=== PATIENT | female | born 1975 | race African-American/Black ===

== ENCOUNTER 2020-01-15 03:13 | Emergency (ER) | payer MEDICAID ==
[2005-11-19 21:45] VITALS: BP 129/83
[~2020-01-15] VITALS: Ht 182.9 cm; Wt 181.0 kg
[2020-01-15 03:13] VITALS: TEMP 96.9
[~2020-01-15 03:13] MED LIST: 00186-0370-20 IH; ABILIFY 10MG TA10 MG PO; ABILIFY 15MG TA15 MG PO; ABILIFY20 MG PO; ABILIFY5 MG PO; ACULAR OPHTHALMI5 ML OP; ADVAIR 250/28 DISKUS IH; ADVAIR 500/28 DISKUS IH; ADVAIR IH; ALBUTEROL S0.4 MG/ML; ALBUTEROL0.09 MG/A1 IH; AMBIEN5 MG PO; ANTIVERT 25MG25 MG PO; ASPIRIN 32325 MG/TAB PO; ATIVAN 1MG T1 MG/TAB PO; AURALGAN EAR DR15 ML OT; Antibiotic; BENADRYL; BENZTROPINE MESY1 MG PO; BENZTROPINE1 MG PO; BLOOD PRESSURE; BUDEPRION XL300 MG PO; BUPROPION HCL150 MG PO; BUSPIRONE; BUSPIRONE10 MG PO; CARDIZEM CD120 MG PO; CATAPRES 0.1MG0.1 MG PO; CATAPRES-T0.1 MG/24 TD; CEPHALEXIN500 M1 PO; CLONIDINE0.1 MG PO; COZAAR 50MG50 MG/TAB PO; CPAP; CYMBALTA 30MG30 MG PO; CYMBALTA 60MG60 MG PO; DEPAKOTE DR500 MG PO; DESYREL; DETROL LA4 PO; DITROPAN 5MG TAB5 MG PO; DOCUSATE CALCI100 MG PO; DOXYCYCLINE 10100 MG PO; ESKALITH300 MG PO; FIORICET 325 MG1 TAB; FLECTOR1.3% TP; FLEXERIL 1010 MG/TAB PO; FLOVENT 110MCG7.9 GM IH; FLUOXETINE; GEODON80 MG PO; GLUCOPHAGE; HCTZ; HCTZ 25MG25 MG PO; HCTZ12.5TAB PO; IBUPROFEN 200200 MG PO; IMIPRAMINE HCL50 MG PO; K-DUR 2020 MEQ PO; LASIX 40MG TABL40 MG PO; LATUDA80 MG PO; LEVAQUIN 250MG250 MG PO; LEVOTHROID0.125 MG PO; LEVOTHYROXIN0.075 MG PO; LEXAPRO; LITHIUM 30300 MG/CAP PO; LITHIUM8 MEQ/5 ML PO; LOPURIN300 MG PO; LORTAB 2.5/5001 TAB; LORTAB 5/500 501 TAB PO; LORTAB 7.5/5001 TAB PO; LUNESTA3 MG PO; MACROBID 1100 MG/CAP PO; METFORMIN500 MG PO; MIDRIN 325 MG-11 CAP PO; MIRTAZAPINE15 MG PO; MOTRIN IB200 MG PO; MS CONTIN15 MG PO; NAPROXEN EC500 MG PO; NAVANE10 MG PO; NORCO 325 MG-51 TAB PO; NORCO 325 MG-7.1 TAB PO; PEPCID 20MG TAB20 MG PO; PERCOCET 5/321 UDTAB PO; PHENERGAN 25 TA25 MG PO; PHENERGAN W/CO120 ML PO; PHENERGAN25 M1 PO; POTASSIUM CH2 MEQ/ML PO; PREDNISOLONE ACETATE; PREDNISONE20 MG PO; PREVACID 15MG15 MG PO; PREVACID 30MG30 M1 PO; PRILOSEC 20MG20 MG PO; PROAIR HFA0.09 MG/AC IH; PROMETHAZINE12.5 M5 PO; PROTONIX 40MG T40 MG PO; PROVENTIL0.09 MG/A1 IH; PROZAC40 MG PO; PSYCH MEDS; ROZEREM8 MG PO; SEROQUEL100 MG PO; SEROQUEL300 MG PO; SEROQUEL400 MG PO; SEROQUEL50 MG PO; SINGULAIR 110 MG/TAB PO; SINGULAIR10 MG PO; SYMBICORT1 AE2 IH; SYMBICORT1 AER IH; SYNTHROID0.137 MG PO; TOPAMAX 100MG100 M1 PO; TOPAMAX 100MG100 MG PO; TOPAMAX100 MG PO; TOPIRAMATE PO; TOPROL XL 50MG50 MG PO; TOVIAZ8 MG PO; TRAZADONE HYDR100 MG PO; TRAZODO50 MG PO; TRICOR145 MG PO; TRILEPTAL 300M300 MG PO; TYLENOL W/COD1 UDTAB PO; UNABLE; VALIUM5 MG PO; VENTOLIN0.09 MG IH; VESICARE10 MG PO; VICODIN 5/5001 UDTAB PO; VIGAMOX 0.5% 3 M3 ML OP; WELLBUTRIN PO; ZANTAC 150150 MG PO; ZIPRASIDONE; ZITHROMAX 250M250 MG PO; ZYLOPRIM 300MG300 MG PO; [UNRECOGNIZED DRUG - OTHER]; [UNRECOGNIZED DRUG - REMARK]; [UNRECOGNIZED DRUG - REMARK]; eye drops
[2020-01-15] MEDS ORDERED: WELLBUTRIN 100100 MG PO (03:54)
[2020-01-15] MEDS ORDERED: FLEXERIL 1010 MG/TAB PO (03:54)
[2020-01-15] MEDS ORDERED: ATARAX 25MG25 MG/TAB PO (03:55)
[2020-01-15] MEDS ORDERED: LATUDA80 MG PO (03:56)
[2020-01-15] MEDS ORDERED: COZAAR 50MG50 MG/TAB PO (03:56)
[2020-01-15] MEDS ORDERED: ATIVAN 1MG T1 MG/TAB PO (03:56)
[2020-01-15] MEDS ORDERED: IMODIUM 2MG CAPS2 MG PO (03:56)
[2020-01-15] MEDS ORDERED: K-DUR20 MEQ PO (03:58)
[2020-01-15] MEDS ORDERED: ANTIVERT 25MG25 MG PO (03:58)
[2020-01-15] MEDS ORDERED: ZYPREXA 5MG5 MG PO (03:59)
[2020-01-15] MEDS ORDERED: SEROQUEL 200MG200 MG PO (04:05)
[2020-01-15] MEDS ORDERED: TRILEPTAL 300M300 MG PO (04:05)
[2020-01-15] MEDS ORDERED: TOPROL XL 50MG50 MG PO (04:06)
[2020-01-15 05:41] VITALS: BP 111/58; PULSE 78
[2020-01-16] MEDS ORDERED: ALEVE 220MG220 MG PO (02:11)
[2020-01-16] MEDS ORDERED: TENORMIN 2525 MG/TAB PO (02:13)
[2020-01-16] MEDS ORDERED: LOTENSIN5 MG PO (02:14)
[2020-01-16] MEDS ORDERED: LIPITOR20 MG PO (02:14)
[2020-01-16] MEDS ORDERED: COLACE 100100 MG/CAP PO (02:15)
[2020-01-16] MEDS ORDERED: B-121000 MCG PO (02:17)
[2020-01-16] MEDS ORDERED: FERROUSAL325 MG PO (02:18)
[2020-01-16] MEDS ORDERED: HALDOL 2MG T2 MG/TAB PO (02:19)
[2020-01-16] MEDS ORDERED: FISH OIL 1000MG1 CAP PO (02:19)
[2020-01-16] MEDS ORDERED: IMDUR 30MG30 MG/TAB PO (02:20)
[2020-01-16] MEDS ORDERED: ATARAX 25MG25 MG/TAB PO (02:20)
[2020-01-16] MEDS ORDERED: CLARITIN LIQUI-10 MG PO (02:24)
[2020-01-16] MEDS ORDERED: FORTAMET500 M1 PO (02:25)
[2020-01-16] MEDS ORDERED: MINIPRESS2 MG PO (02:25)
[2020-01-16] MEDS ORDERED: PRILOSEC 20MG20 MG PO (02:26)
[2020-01-16] MEDS ORDERED: K-DUR 10 MEQ T10 MEQ PO (02:27)
[2020-01-16] MEDS ORDERED: SENNA-LAX8.6 MG PO (02:28)
[2020-01-16] MEDS ORDERED: PRISTIQ100 MG PO (02:28)
[2020-01-16] MEDS ORDERED: TYLENOL 500MG500 MG PO (02:34)
[2020-01-16] MEDS ORDERED: VICTOZA6 MG/ML SQ (02:34)
[2020-01-16] MEDS ORDERED: GENTLE LAXATIVE10 MG RC (02:35)
[2020-01-16] MEDS ORDERED: DESYREL DIVIDO300 MG PO (02:37)
== END 2020-01-15 05:41 | disposition home or self-care (01) ==
LOC: COL.ER 03:13
DX: G47.33 Obstructive sleep apnea (adult) (pediatric) (principal); J44.9 Chronic obstructive pulmonary disease, unspecified; I10 Essential (primary) hypertension; E78.5 Hyperlipidemia, unspecified; F20.9 Schizophrenia, unspecified; F31.9 Bipolar disorder, unspecified; Z99.89 Dependence on other enabling machines and devices

== ENCOUNTER 2020-01-15 21:09 | Emergency (ER) | payer MEDICAID ==
[2005-11-19 21:45] VITALS: BP 129/83
[~2020-01-15] VITALS: Ht 182.9 cm; Wt 181.0 kg
[~2020-01-15 21:09] MED LIST changes: +ATARAX 25MG25 MG/TAB PO; +IMODIUM 2MG CAPS2 MG PO; +K-DUR20 MEQ PO; +SEROQUEL 200MG200 MG PO; +WELLBUTRIN 100100 MG PO; +ZYPREXA 5MG5 MG PO
[2020-01-15 21:57] LABS: BASO % 0.4 % (0.0-2.0); EOS # 0.3 (0.0-0.7); EOS % 3.2 % (0-4.0); GRAN % 50.8 % (42.2-75.2); HEMATOCRIT 42.4 % (37.0-47.0); HEMOGLOBIN 13.4 g/dl (12.5-16.0); LYMPH # 3.8 (1.2-3.4); MEAN CELL VOLUME 94 fl (80.0-100.0); MEAN CORPUSCULAR HEMOGLOBIN 30 pg (27.0-31.0); MEAN CORPUSCULAR HGB CONC 32 g/dl (33.0-37.0); MEAN PLATELET VOLUME 9.7 fl (7.4-10.4); MONO # 0.7 (0.1-0.6); MONO % 7.2 % (1.7-9.3); PLATELET COUNT 267 K/mm3 (130-400); RED BLOOD COUNT 4.51 M/mm3 (4.10-5.30); REDCELL DISTRIBUTION WIDTH-CV 13.1 % (11.5-14.5)
[2020-01-15 22:06] LABS: COLLECTION METHOD CLEAN CATCH
[2020-01-15 22:07] LABS: ALANINE AMINOTRANSFERASE 16 U/L (4-34); ALBUMIN 4.1 gm/dL (3.5-5.0); ALKALINE PHOSPHATASE 97 U/L (50-136); ANION GAP 6 mmol/L (7-16); AST,SGOT 25 U/L (15-37); BILIRUBIN,TOTAL 0.3 mg/dL (0.0-1.0); BLOOD UREA NITROGEN 12 mg/dL (7-17); CALCIUM 9.6 mg/dL (8.4-10.2); CARBON DIOXIDE 26 mmol/L (22-30); CHLORIDE 106 mmol/L (98-107); CREATININE, serum 0.87 (0.52-1.25); GLUCOSE 154 mg/dL (74-106); POTASSIUM 3.6 mmol/L (3.4-5.0); SODIUM 139 mmol/L (137-145); TOTAL PROTEIN 8.3 gm/dL (6.4-8.2)
[2020-01-15 22:10] LABS: ACETAMINOPHEN < 10 ug/mL (10-30); ALCOHOL(ethanol),MEDICAL < 10 mg/dL; SALICYLATE < 1.0 mg/dL
[2020-01-15 22:14] LABS: MUCOUS Present /lpf; PH 5 (5-8); URINE APPEARANCE Hazy; URINE BACTERIA Occasional /hpf; URINE BILIRUBIN Negative (NEGATIVE); URINE BLOOD 3+ (NEGATIVE); URINE COLOR Yellow; URINE GLUCOSE Negative (NEGATIVE); URINE KETONE Negative (NEGATIVE); URINE LEUKOCYTE ESTERASE Negative (NEGATIVE); URINE NITRATE Positive (NEGATIVE); URINE PROTEIN(semi-quant) 1+ (NEGATIVE); URINE UROBILINOGEN Negative (NEGATIVE)
[2020-01-15 22:24] LABS: TRICYCLIC ANTIDEPRESS URINE POSITIVE
[2020-01-16] MEDS ORDERED: ALEVE 220MG220 MG PO (02:11)
[2020-01-16] MEDS ORDERED: TENORMIN 2525 MG/TAB PO (02:13)
[2020-01-16] MEDS ORDERED: LOTENSIN5 MG PO (02:14)
[2020-01-16] MEDS ORDERED: LIPITOR20 MG PO (02:14)
[2020-01-16] MEDS ORDERED: COLACE 100100 MG/CAP PO (02:15)
[2020-01-16] MEDS ORDERED: B-121000 MCG PO (02:17)
[2020-01-16] MEDS ORDERED: FERROUSAL325 MG PO (02:18)
[2020-01-16] MEDS ORDERED: FISH OIL 1000MG1 CAP PO (02:19)
[2020-01-16] MEDS ORDERED: HALDOL 2MG T2 MG/TAB PO (02:19)
[2020-01-16] MEDS ORDERED: ATARAX 25MG25 MG/TAB PO (02:20)
[2020-01-16] MEDS ORDERED: IMDUR 30MG30 MG/TAB PO (02:20)
[2020-01-16] MEDS ORDERED: CLARITIN LIQUI-10 MG PO (02:24)
[2020-01-16] MEDS ORDERED: FORTAMET500 M1 PO (02:25)
[2020-01-16] MEDS ORDERED: MINIPRESS2 MG PO (02:25)
[2020-01-16] MEDS ORDERED: PRILOSEC 20MG20 MG PO (02:26)
[2020-01-16] MEDS ORDERED: K-DUR 10 MEQ T10 MEQ PO (02:27)
[2020-01-16] MEDS ORDERED: SENNA-LAX8.6 MG PO (02:28)
[2020-01-16] MEDS ORDERED: PRISTIQ100 MG PO (02:28)
[2020-01-16] MEDS ORDERED: TYLENOL 500MG500 MG PO (02:34)
[2020-01-16] MEDS ORDERED: VICTOZA6 MG/ML SQ (02:34)
[2020-01-16] MEDS ORDERED: GENTLE LAXATIVE10 MG RC (02:35)
[2020-01-16] MEDS ORDERED: DESYREL DIVIDO300 MG PO (02:37)
--- NOTE | 2020-01-16 15:24 | NUR ---
SERENITY responded to ED consult. The patient presented to the ED with chief complaint of wanting her medications restarted. The patient had been residing at [facility] for the past seven years. She just signed herself out of the facility last Monday. While there, she had been renting a trilogy from them. [facility] and [facility] referred her to [facility]. SERENITY contacted Denton at [facility]. Denton reports that the patient would not be an involuntary placement and is not recommending inpatient psych for the patient. Denton reports that the best discharge plan would be for her to return back home with her mother or for her to stay with her sister, Zaida. Denton reports that they would not be able to accept at the [facility]. Denton faxed over the patient's MAR from [facility]. SERENITY's met with the patient. The patient is agreeable to going back home with her mother (Malini) and uncle (Scott) and getting set up at [facility] in [place] for primary care. SERENITY contacted [facility] in [place] and secured the patient and appointment there on 01/21 at 0920. SERENITY faxed [facility] the patient's records. SERENITY then contacted the patient's uncle, Scott. Scott and the patient's mother have spoken to the patient and are agreeable with her coming back there. SERENITY updated Scott on the patient's appointment at [facility]. SERENITY contacted [facility] and requested records for the patient's sleep study to assist with getting a bipap/trilogy. SERENITY awaiting records. SERENITY faxed the patient's scripts to Katy at [facility]. Katy reports that they have the patient's insurance on file and that the patient does not have a co-pay on any of the scripts, besides the OTC meds. The patient's sister, Zaida, plans to greens picker the scripts. The patient is in need of transport back home. A taxi voucher was provided to the patient's RN. SERENITY updated the patient's RN on the above information.
[2020-01-16 15:32] VITALS: BP 127/83; PULSE 57; TEMP 97.9
--- NOTE | 2020-01-16 16:03 | NUR ---
Katy, at [facility], reports that the glucometer and supplies would not be covered by insurance. She states that it would cost $25. SERENITY faxed a med voucher to Katy at [facility] for the $25.
== END 2020-01-16 16:29 | disposition home or self-care (01) ==
LOC: COL.ER 21:09
PROVIDERS: Physician Assistant
DX: Z00.00 Encounter for general adult medical examination without abnormal findings (principal); N39.0 Urinary tract infection, site not specified; E11.9 Type 2 diabetes mellitus without complications; I10 Essential (primary) hypertension; I25.10 Atherosclerotic heart disease of native coronary artery without angina pectoris; Z95.1 Presence of aortocoronary bypass graft; Z91.14 Patient's other noncompliance with medication regimen; Z87.891 Personal history of nicotine dependence; Z79.84 Long term (current) use of oral hypoglycemic drugs; R45.851 Suicidal ideations

== ENCOUNTER 2021-12-13 14:48 | Emergency (ER) | payer MEDICAID ==
[~2021-12-13] VITALS: Ht 182.9 cm; Wt 142.3 kg
[~2021-12-13 14:48] MED LIST changes: +ALEVE 220MG220 MG PO; +B-121000 MCG PO; +CLARITIN LIQUI-10 MG PO; +COLACE 100100 MG/CAP PO; +DESYREL DIVIDO300 MG PO; +FERROUSAL325 MG PO; +FISH OIL 1000MG1 CAP PO; +FORTAMET500 M1 PO; +GENTLE LAXATIVE10 MG RC; +HALDOL 2MG T2 MG/TAB PO; +IMDUR 30MG30 MG/TAB PO; +K-DUR 10 MEQ T10 MEQ PO; +LIPITOR20 MG PO; +LOTENSIN5 MG PO; +MINIPRESS2 MG PO; +PRISTIQ100 MG PO; +SENNA-LAX8.6 MG PO; +TENORMIN 2525 MG/TAB PO; +TYLENOL 500MG500 MG PO; +VICTOZA6 MG/ML SQ
[2021-12-13 15:50] LABS: COLLECTION METHOD CLEAN CATCH
[2021-12-13 15:59] LABS: PH 7 (5-8); URINE APPEARANCE Hazy (CLEAR/HAZY); URINE BACTERIA None Seen /hpf (NONE SEEN); URINE BILIRUBIN Positive (NEGATIVE); URINE BLOOD 3+ (NEGATIVE); URINE COLOR Amber (YELLOW); URINE GLUCOSE Negative (NEGATIVE); URINE KETONE Negative (NEGATIVE); URINE LEUKOCYTE ESTERASE Negative (NEGATIVE); URINE NITRATE Negative (NEGATIVE); URINE PROTEIN(semi-quant) 1+ (NEGATIVE); URINE RBC >50 /hpf (0-2); URINE UROBILINOGEN >=4.0 (NEGATIVE)
[2021-12-13 16:53] LABS: BASO % 0.2 % (0.0-2.0); EOS # 0.2 K/mm3 (0.0-0.7); GRAN # 5.7 K/mm3 (1.4-6.5); GRAN % 69.1 % (42.2-75.2); HEMOGLOBIN 11.6 g/dl (12.5-16.0); LYMPH # 1.6 K/mm3 (1.2-3.4); LYMPH % 19.6 % (20.0-51.0); MEAN CELL VOLUME 95 fl (80.0-100.0); MEAN CORPUSCULAR HEMOGLOBIN 31 pg (27-31); MEAN CORPUSCULAR HGB CONC 32 g/dl (33.0-37.0); MEAN PLATELET VOLUME 10.8 fl (7.4-10.4); MONO # 0.7 K/mm3 (0.1-0.6); MONO % 8.7 % (1.7-9.3); PLATELET COUNT 192 K/mm3 (130-400); RED BLOOD COUNT 3.79 M/mm3 (4.10-5.30); REDCELL DISTRIBUTION WIDTH-CV 13.7 % (11.5-14.5)
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
[2021-12-13 17:23] LABS: ALBUMIN 3.2 gm/dL (3.5-5.0); BILIRUBIN,TOTAL 2.7 mg/dL (0.2-1.2); C-REACTIVE PROTEIN 6.83 mg/dL (0.00-0.50); CALCIUM 8.6 mg/dL (8.4-10.2); CREATININE, serum 0.93 mg/dL (0.57-1.11); POTASSIUM 3.6 mmol/L (3.5-4.5); TOTAL PROTEIN 6.7 gm/dL (6.2-8.1)
[2021-12-14] MEDS ORDERED: TENORMIN 2525 MG/TAB PO (03:47)
[2021-12-14] MEDS ORDERED: WELLBUTRIN SR100 M1 PO (03:48)
[2021-12-14] MEDS ORDERED: IMDUR 30MG30 MG/TAB PO (03:48)
[2021-12-14] MEDS ORDERED: ZYLOPRIM 100MG100 MG PO (03:49)
[2021-12-14] MEDS ORDERED: SYNTHROID0.125 MG/T PO (03:49)
[2021-12-14] MEDS ORDERED: PRILOSEC 20MG20 MG PO (03:49)
[2021-12-14] MEDS ORDERED: PRISTIQ100 MG PO (03:50)
[2021-12-14] MEDS ORDERED: LOTENSIN5 MG PO (03:50)
[2021-12-14] MEDS ORDERED: K-TAB20 PO (03:51)
[2021-12-14] MEDS ORDERED: HALDOL 5MG T5 MG/TAB PO (03:52)
[2021-12-14] MEDS ORDERED: SINGULAIR 110 MG/TAB PO (03:52)
[2021-12-14] MEDS ORDERED: MINIPRESS 5M5 MG/CAP PO (03:52)
[2021-12-14] MEDS ORDERED: TOPAMAX200 MG PO (03:53)
[2021-12-14] MEDS ORDERED: LIPITOR20 MG PO (03:53)
[2021-12-14] MEDS ORDERED: SEROQUEL 200MG200 MG PO (03:53)
[2021-12-14 04:05] VITALS: BP 106/57; TEMP 98.5
[2021-12-14 09:40] VITALS: PULSE 75
--- NOTE | 2021-12-14 15:00 | NUR ---
Horticultural Therapist met with patient to complete CARE Assessment as patient may require placement in a custodial or an assisted living. Patient was agreeable and participated in assessment. SERENITY marked that patient will need a level II screening. SERENITY faxed C[facility] to [facility], provided a copy to patient, and placed a copy on patient's chart. SERENITY also notified Christal at the CARE program that CARE was completed as she was scheduled to complete one with patient tomorrow. Patient stated to SERENITY that she would rather live on the street that go to a nursing facility at this time. SERENITY collaborated with CELINA Smith Horticultural Therapist who advised patient can go stay with her sister, Zaida in [place]. SERENITY provided patient with a taxi voucher to get to Zaida's home at [address]. ESRENITY also had made contact with patient's friend, Rosie Meyer (ph#[phone]) who lives in [place]. Rosie advised she lives with her aunt and would need her aunt's permission if patient was to come stay with her. SERENITY provided the above update to ED RN, Janny.
== END 2021-12-14 09:50 | disposition home or self-care (01) ==
LOC: COL.ER 14:48
PROVIDERS: Family Medicine
DX: D64.9 Anemia, unspecified (principal); R74.01 Elevation of levels of liver transaminase levels; Z59.00 Homelessness unspecified; Z87.891 Personal history of nicotine dependence
CPT/HCPCS: J7120

== ENCOUNTER → 2022-01-06 | Outpatient (CLI) | payer MEDICAID ==
[~2022-01-06] MED LIST changes: +HALDOL 5MG T5 MG/TAB PO; +K-TAB20 PO; +MINIPRESS 5M5 MG/CAP PO; +SYNTHROID0.125 MG/T PO; +TOPAMAX200 MG PO; +WELLBUTRIN SR100 M1 PO; +ZYLOPRIM 100MG100 MG PO
== END ==
LOC: COL.RAD 08:59
DX: Z11.1 Encounter for screening for respiratory tuberculosis (principal)

== ENCOUNTER 2022-03-31 00:02 | Emergency (ER) | payer MEDICAID ==
[~2022-03-31] VITALS: Ht 182.9 cm; Wt 162.7 kg
[2022-03-31 00:31] LABS: BASO % 0.6 % (0.0-2.0); EOS # 0.3 K/mm3 (0.0-0.7); EOS % 3.7 % (0.0-4.0); GRAN # 2.9 K/mm3 (1.4-6.5); GRAN % 41.2 % (42.2-75.2); HEMATOCRIT 39.7 % (37.0-47.0); HEMOGLOBIN 12.4 g/dl (12.5-16.0); LYMPH # 3.2 K/mm3 (1.2-3.4); LYMPH % 44.9 % (20.0-51.0); MEAN CELL VOLUME 99 fl (80.0-100.0); MEAN CORPUSCULAR HEMOGLOBIN 31 pg (27-31); MEAN CORPUSCULAR HGB CONC 31 g/dl (33.0-37.0); MEAN PLATELET VOLUME 10.1 fl (7.4-10.4); MONO # 0.7 K/mm3 (0.1-0.6); MONO % 9.2 % (1.7-9.3); PLATELET COUNT 202 K/mm3 (130-400); RED BLOOD COUNT 4.03 M/mm3 (4.10-5.30); REDCELL DISTRIBUTION WIDTH-CV 13.4 % (11.5-14.5)
[2022-03-31 00:50] LABS: ALANINE AMINOTRANSFERASE 13 U/L (0-55); ALBUMIN 3.8 gm/dL (3.5-5.0); ALKALINE PHOSPHATASE 102 U/L (40-150); ANION GAP 11 mmol/L (7-16); AST,SGOT 16 U/L (5-34); BILIRUBIN,TOTAL 0.3 mg/dL (0.2-1.2); BLOOD UREA NITROGEN 19 mg/dL (7-19); CALCIUM 8.8 mg/dL (8.4-10.2); CARBON DIOXIDE 22 mmol/L (22-29); CHLORIDE 110 mmol/L (98-107); CREATININE, serum 1.12 mg/dL (0.57-1.11); GLUCOSE 97 mg/dL (70-99); POTASSIUM 3.5 mmol/L (3.5-4.5); SODIUM 143 mmol/L (136-145); TOTAL PROTEIN 7.6 gm/dL (6.2-8.1)
[2022-03-31 00:57] LABS: TROPONIN-I < 0.010 ng/mL (0.00-0.033)
[2022-03-31 01:40] VITALS: BP 131/77; PULSE 62; TEMP 98
== END 2022-03-31 01:40 | disposition home or self-care (01) ==
LOC: COL.ER 00:02
PROVIDERS: Emergency Medicine
DX: R06.00 Dyspnea, unspecified (principal); R60.0 Localized edema; R79.0 Abnormal level of blood mineral; Z20.822 Contact with and (suspected) exposure to COVID-19; Z87.09 Personal history of other diseases of the respiratory system

== ENCOUNTER 2022-04-11 17:13 | Observation (INO) | payer MEDICAID ==
[~2022-04-11] VITALS: Ht 182.9 cm; Wt 132.1 kg
[2022-04-11 17:32] LABS: BASO % 0.5 % (0.0-2.0); EOS # 0.3 K/mm3 (0.0-0.7); GRAN # 3.9 K/mm3 (1.4-6.5); GRAN % 47.2 % (42.2-75.2); HEMOGLOBIN 12.7 g/dl (12.5-16.0); LYMPH # 3.2 K/mm3 (1.2-3.4); LYMPH % 39.3 % (20.0-51.0); MEAN CELL VOLUME 98 fl (80.0-100.0); MEAN CORPUSCULAR HEMOGLOBIN 30 pg (27-31); MEAN CORPUSCULAR HGB CONC 31 g/dl (33.0-37.0); MEAN PLATELET VOLUME 10.2 fl (7.4-10.4); MONO # 0.7 K/mm3 (0.1-0.6); MONO % 8.6 % (1.7-9.3); PLATELET COUNT 203 K/mm3 (130-400); RED BLOOD COUNT 4.18 M/mm3 (4.10-5.30); REDCELL DISTRIBUTION WIDTH-CV 13.5 % (11.5-14.5)
[2022-04-11 17:48] LABS: ALANINE AMINOTRANSFERASE 14 U/L (0-55); ALBUMIN 3.9 gm/dL (3.5-5.0); ALKALINE PHOSPHATASE 91 U/L (40-150); ANION GAP 9 mmol/L (7-16); AST,SGOT 15 U/L (5-34); BILIRUBIN,TOTAL 0.4 mg/dL (0.2-1.2); BLOOD UREA NITROGEN 18 mg/dL (7-19); CARBON DIOXIDE 21 mmol/L (22-29); CHLORIDE 111 mmol/L (98-107); CREATININE, serum 1.14 mg/dL (0.57-1.11); GLUCOSE 95 mg/dL (70-99); INR 1.1 (0.8-3.0); POTASSIUM 3.8 mmol/L (3.5-4.5); PROTHROMBIN TIME 12.7 SECONDS (9.7-12.8); SODIUM 141 mmol/L (136-145); TOTAL PROTEIN 7.8 gm/dL (6.2-8.1)
[2022-04-11 17:57] LABS: TROPONIN-I < 0.010 ng/mL (0.00-0.033)
[2022-04-11 22:02] VITALS: BP 125/69; PULSE 55; TEMP 98.2
[2022-04-11] MEDS ORDERED: COGENTIN 1MG1 MG/TAB PO (22:09)
[2022-04-11] MEDS ORDERED: MIRALAX510G PO (22:14)
--- NOTE | 2022-04-11 23:19 | NUR ---
Patient arrived to medical unit around 2129 from ER. Was talking on phone, assessed around 2214. Alert and oriented. Denies pain and discomfort. Does report SOB and dyspnea with exertion. Requested bedside commode to decrease exertion. LS CTA in upper lobes, diminished in lower. Reports occasional cough, but no sputum production. On oxygen at 4 L/min via NC. HRR. Telemetry in place. BSAx4. 1+ edema BLE. Voices no questions, needs, or concerns. In bed with call light within reach.
[2022-04-12 00:36] VITALS: BP 124/58; BP 124/580; PULSE 54; TEMP 97.7
[2022-04-12 04:27] VITALS: BP 106/41; PULSE 59; TEMP 97.9
--- NOTE | 2022-04-12 05:18 | NUR ---
Patient has denied having chest pain and discomfort since arriving to medical unit. Continues on oxygen at 4.5 L/min via NC. Voices no questions, needs, or concerns at this time. In bed with call light within reach.
[2022-04-12 07:30] LABS: BASO % 0.4 % (0.0-2.0); EOS # 0.3 K/mm3 (0.0-0.7); EOS % 4.2 % (0.0-4.0); GRAN # 3.4 K/mm3 (1.4-6.5); GRAN % 47.7 % (42.2-75.2); HEMATOCRIT 39.6 % (37.0-47.0); HEMOGLOBIN 12.8 g/dl (12.5-16.0); LYMPH # 2.7 K/mm3 (1.2-3.4); LYMPH % 38.7 % (20.0-51.0); MEAN CELL VOLUME 95 fl (80.0-100.0); MEAN CORPUSCULAR HEMOGLOBIN 31 pg (27-31); MEAN CORPUSCULAR HGB CONC 32 g/dl (33.0-37.0); MONO # 0.6 K/mm3 (0.1-0.6); MONO % 8.9 % (1.7-9.3); PLATELET COUNT 201 K/mm3 (130-400); RED BLOOD COUNT 4.16 M/mm3 (4.10-5.30); REDCELL DISTRIBUTION WIDTH-CV 13.4 % (11.5-14.5)
[2022-04-12 07:41] VITALS: BP 110/59; PULSE 56; TEMP 97.7
[2022-04-12 07:42] LABS: CALCIUM 9.3 mg/dL (8.4-10.2); CREATININE, serum 1.05 mg/dL (0.57-1.11); MAGNESIUM 1.6 mg/dL (1.6-2.6); POTASSIUM 3.7 mmol/L (3.5-4.5)
--- NOTE | 2022-04-12 08:50 | NUR ---
ADAMS Siu notified of blood pressure of 110/58 and antihypertensives due this AM. Requested meds be held until the medical team does rounds.
--- NOTE | 2022-04-12 09:11 | NUR ---
SERENITY met with the patient to discuss discharge plan. The patient resides at [facility]. Her primary care provider is Kylie Ordaz APRN. The patient does not have a DPOA-HC in EMR, but she states that she does have one completed and that she designated her cousin, Tommy Wang (ph#[phone]). The patient plans to return back to [facility] upon discharge. SERENITY contacted and faxed updates to Diandra at [facility]. SERENITY requested a copy of the patient's DPOA-HC. Diandra states she is unsure if they have a DPOA-HC for the patient, but she will look. If she finds it, she will fax it to the medical unit. Diandra states that the patient does have a payee. Discharge plan: [facility]*
[2022-04-12 11:20] VITALS: BP 117/54; PULSE 112; TEMP 98.1
[2022-04-12 15:57] VITALS: BP 119/75; PULSE 56; TEMP 98.4
--- NOTE | 2022-04-12 18:44 | NUR ---
Patient had an uneventful day and slept most of shift. Denied nausea/shortness of breath. Had a headache x1 and received tylenol with good results. VS remain stable. Denies current needs. Call light in reach. Will monitor.
[2022-04-12 20:15] VITALS: BP 116/59; PULSE 64; TEMP 98.3
--- NOTE | 2022-04-12 22:10 | NUR ---
PATIENT RESTING QUIETLY, PATIENT DENIES PAIN OR NEEDS. PATIENT BLOOD SUGAR 124
--- NOTE | 2022-04-12 23:29 | NUR ---
PT DIDN'T WANT TO WAKE UP FOR TX AT THIS TIME.
[2022-04-13] VITALS (13 sets, daily range): BP systolic 88–119; BP diastolic 54–69; PULSE 60–78; TEMP 96.8–98.4
--- NOTE | 2022-04-13 05:35 | NUR ---
PATIENT RESTED QUIETLY THIS SHIFT. PATIENT DENIED NEEDS AND PAIN. PATIENT RECEIVED NO PRN MEDICATION. PATIENT MADE NPO AT MIDNIGHT FOR CHAR THIS AM.
--- NOTE | 2022-04-13 09:44 | NUR ---
PT RESTING IN BED, APPEARS VERY DROWSY THIS AM. MORNING MEDICATIONS HELD FOR NPO. SHIFT ASSESSMENT COMPLETED. DENIES ANY PAIN OR NEEDS AT THIS TIME. PT TO GO DOWN FOR LEXISCAN PROCEDURE. WILL CONTINUE TO MONITOR.
--- NOTE | 2022-04-13 09:50 | NUR ---
Several visit attempts; [employer] left card offering [employer] Bless[employer] from [employer] and information regarding the availability of [facility] at [facility]. [employer]ician Parking will follow up, patient is out of the room at this time.
[2022-04-13] MEDS ORDERED: ASPIRIN 81M81 MG/TA2 PO (10:54)
[2022-04-13] MEDS ORDERED: LASIX 40MG TABL40 MG PO (10:54)
[2022-04-13 12:59] LABS: COLLECTION METHOD CLEAN CATCH
[2022-04-13 13:07] LABS: PH 5 (5-8); SQUAMOUS EPITHELIAL 0-2 /hpf (0-10); URINE APPEARANCE Clear (CLEAR/HAZY); URINE BACTERIA None Seen /hpf (NONE SEEN); URINE BLOOD Negative (NEGATIVE); URINE COLOR Yellow (YELLOW); URINE GLUCOSE Negative (NEGATIVE); URINE KETONE Negative (NEGATIVE); URINE NITRATE Negative (NEGATIVE); URINE PROTEIN(semi-quant) Negative (NEGATIVE); URINE RBC 0-2 /hpf (0-2); URINE UROBILINOGEN Negative (NEGATIVE)
--- NOTE | 2022-04-13 14:18 | NUR ---
The patient is to tentatively discharge tomorrow after a MELVIN. SW notified and faxed updates to Sandeep BABCOCK.
--- NOTE | 2022-04-13 21:13 | NUR ---
TX GIVEN VIA MOUTHPIECE, TOLERATED WELL.
--- NOTE | 2022-04-13 22:58 | NUR ---
Patient assessed around 2049. Denies pain and discomfort. Denies SOB and dyspnea. On room air. Plan for MELVIN tomorrow, NPO after midnight, patient is aware and did sign consent. Voices no questions, needs, or concerns at this time. In bed with call light within reach.
[2022-04-14] VITALS (9 sets, daily range): BP systolic 99–132; BP diastolic 50–79; PULSE 49–95; TEMP 97.9–98
--- NOTE | 2022-04-14 05:11 | NUR ---
Patient has been NPO since midnight for MELVIN today. Took medications with sips of water. Voices no questions, needs, or concerns at this time. In bed with call light within reach.
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
[2022-04-14 11:27] LABS: BASO % 0.6 % (0.0-2.0); EOS # 0.3 K/mm3 (0.0-0.7); EOS % 4.4 % (0.0-4.0); GRAN # 3.1 K/mm3 (1.4-6.5); HEMATOCRIT 43.5 % (37.0-47.0); HEMOGLOBIN 14.2 g/dl (12.5-16.0); LYMPH # 2.5 K/mm3 (1.2-3.4); MEAN CELL VOLUME 95 fl (80.0-100.0); MEAN CORPUSCULAR HEMOGLOBIN 31 pg (27-31); MEAN CORPUSCULAR HGB CONC 33 g/dl (33.0-37.0); MEAN PLATELET VOLUME 10.3 fl (7.4-10.4); MONO # 0.7 K/mm3 (0.1-0.6); MONO % 10.7 % (1.7-9.3); PLATELET COUNT 228 K/mm3 (130-400); RED BLOOD COUNT 4.57 M/mm3 (4.10-5.30); REDCELL DISTRIBUTION WIDTH-CV 13.1 % (11.5-14.5)
[2022-04-14 11:40] LABS: CALCIUM 9.6 mg/dL (8.4-10.2); CREATININE, serum 1.12 mg/dL (0.57-1.11); MAGNESIUM 1.6 mg/dL (1.6-2.6); POTASSIUM 3.9 mmol/L (3.5-4.5)
--- NOTE | 2022-04-14 13:19 | NUR ---
The patient is to discharge today, 04/14, back to [facility]. Transportation arranged around 1430, via [facility]. Medical unit updated. No additional needs at this time.
--- NOTE | 2022-04-14 14:52 | NUR ---
PT EDUCATED ON DISCHARGE INSTRUCTIONS, VERBALIZED UNDERSTANDING. IV AND TELEMETRY REMOVED. DISCHARGE INSTRUCTIONS LEFT WITH PATIENT. [facility]SP[facility] WILL ESCORT PT OUT.
== END 2022-04-14 15:10 | disposition home or self-care (01) ==
LOC: COL.ER 17:13 → MEDICAL 19:22
PROVIDERS: Physician Assistant; Student in an Organized Health Care Education/Training Program; ADMIT Internal Medicine
DX: J96.01 Acute respiratory failure with hypoxia (principal); I87.8 Other specified disorders of veins; J90 Pleural effusion, not elsewhere classified; I25.10 Atherosclerotic heart disease of native coronary artery without angina pectoris; Z79.899 Other long term (current) drug therapy; I10 Essential (primary) hypertension; E11.9 Type 2 diabetes mellitus without complications; G47.33 Obstructive sleep apnea (adult) (pediatric); F25.9 Schizoaffective disorder, unspecified; E66.01 Morbid (severe) obesity due to excess calories; I08.1 Rheumatic disorders of both mitral and tricuspid valves
CPT/HCPCS: A9284; A9500; G0378; J1650; J1940; J2704; J2785; Q9967

== ENCOUNTER 2022-04-22 19:38 | Emergency (ER) | payer MEDICAID ==
[~2022-04-22] VITALS: Ht 182.9 cm; Wt 155.5 kg
[~2022-04-22 19:38] MED LIST changes: +ASPIRIN 81M81 MG/TA2 PO; +COGENTIN 1MG1 MG/TAB PO; +MIRALAX510G PO
[2022-04-22 20:11] LABS: COLLECTION METHOD CATHETER
[2022-04-22 20:23] LABS: URINE APPEARANCE Clear (CLEAR/HAZY); URINE COLOR Yellow (YELLOW); URINE GLUCOSE Negative (NEGATIVE); URINE KETONE Negative (NEGATIVE); URINE PROTEIN(semi-quant) Negative (NEGATIVE)
[2022-04-22 20:24] LABS: BASO % 0.4 % (0.0-2.0); EOS # 0.2 K/mm3 (0.0-0.7); EOS % 2.9 % (0.0-4.0); GRAN % 71.3 % (42.2-75.2); HEMATOCRIT 43.9 % (37.0-47.0); HEMOGLOBIN 14.1 g/dl (12.5-16.0); LYMPH # 1.2 K/mm3 (1.2-3.4); LYMPH % 16.7 % (20.0-51.0); MEAN CELL VOLUME 96 fl (80.0-100.0); MEAN CORPUSCULAR HEMOGLOBIN 31 pg (27-31); MEAN CORPUSCULAR HGB CONC 32 g/dl (33.0-37.0); MEAN PLATELET VOLUME 10.3 fl (7.4-10.4); MONO # 0.6 K/mm3 (0.1-0.6); MONO % 8.1 % (1.7-9.3); PLATELET COUNT 251 K/mm3 (130-400); RED BLOOD COUNT 4.56 M/mm3 (4.10-5.30); REDCELL DISTRIBUTION WIDTH-CV 12.7 % (11.5-14.5)
[2022-04-22 20:24] LABS: URINE BLOOD Negative (NEGATIVE); URINE NITRATE Negative (NEGATIVE)
[2022-04-22 20:25] LABS: SQUAMOUS EPITHELIAL 0-2 /hpf (0-10); URINE BACTERIA None Seen /hpf (NONE SEEN); URINE RBC 0-2 /hpf (0-2)
[2022-04-22 20:44] LABS: ALBUMIN 3.9 gm/dL (3.5-5.0); BILIRUBIN,TOTAL 2.5 mg/dL (0.2-1.2); C-REACTIVE PROTEIN 2.09 mg/dL (0.00-0.50); CALCIUM 9.9 mg/dL (8.4-10.2); CREATININE, serum 1.19 mg/dL (0.57-1.11); POTASSIUM 3.8 mmol/L (3.5-4.5); TOTAL PROTEIN 8.9 gm/dL (6.2-8.1)
[2022-04-22] MEDS ORDERED: LEVAQUIN 5500 MG/TA1 PO (23:56)
[2022-04-22] MEDS ORDERED: FLAGYL500 MG PO (23:56)
[2022-04-23 00:37] VITALS: BP 126/83; PULSE 83; TEMP 98.4
== END 2022-04-23 00:44 | disposition home or self-care (01) ==
LOC: COL.ER 19:38
PROVIDERS: Nurse Practitioner
DX: K80.20 Calculus of gallbladder without cholecystitis without obstruction (principal); R74.01 Elevation of levels of liver transaminase levels; E66.01 Morbid (severe) obesity due to excess calories
CPT/HCPCS: J2270; J2405; Q9967

== ENCOUNTER → 2022-04-26 | Outpatient (CLI) | payer MEDICAID ==
[~2022-04-26] MED LIST changes: +FLAGYL500 MG PO; +LEVAQUIN 5500 MG/TA1 PO
== END ==
LOC: COL.RAD 13:30
DX: K76.0 Fatty (change of) liver, not elsewhere classified (principal)

== ENCOUNTER 2022-05-10 15:05 | Emergency (ER) | payer MEDICAID ==
[~2022-05-10] VITALS: Ht 175.3 cm; Wt 157.7 kg
[2022-05-10 15:34] LABS: COLLECTION METHOD CATHETER
[2022-05-10 15:42] LABS: PH 5.5 (5.0-8.5); SQUAMOUS EPITHELIAL 0-2 /hpf (0-10); URINE APPEARANCE Clear (CLEAR/HAZY); URINE BACTERIA None Seen /hpf (NONE SEEN); URINE BLOOD Negative (NEGATIVE); URINE COLOR Yellow (YELLOW); URINE GLUCOSE Negative (NEGATIVE); URINE KETONE Negative (NEGATIVE); URINE NITRATE Negative (NEGATIVE); URINE PROTEIN(semi-quant) Negative (NEGATIVE); URINE RBC 0-2 /hpf (0-2); URINE UROBILINOGEN 0.2 E.U/dL (0.2-1.0)
[2022-05-10 15:55] LABS: TRICYCLIC ANTIDEPRESS URINE POSITIVE
[2022-05-10 16:17] LABS: BASO # 0.1 K/mm3 (0.0-0.2); BASO % 0.7 % (0.0-2.0); EOS # 0.3 K/mm3 (0.0-0.7); EOS % 3.5 % (0.0-4.0); GRAN % 45.2 % (42.2-75.2); HEMATOCRIT 39.6 % (37.0-47.0); HEMOGLOBIN 12.8 g/dl (12.5-16.0); LYMPH # 3.6 K/mm3 (1.2-3.4); MEAN CELL VOLUME 95 fl (80.0-100.0); MEAN CORPUSCULAR HEMOGLOBIN 31 pg (27-31); MEAN CORPUSCULAR HGB CONC 32 g/dl (33.0-37.0); MEAN PLATELET VOLUME 10.2 fl (7.4-10.4); MONO # 0.8 K/mm3 (0.1-0.6); MONO % 8.9 % (1.7-9.3); PLATELET COUNT 243 K/mm3 (130-400); RED BLOOD COUNT 4.18 M/mm3 (4.10-5.30); REDCELL DISTRIBUTION WIDTH-CV 12.5 % (11.5-14.5)
[2022-05-10 16:35] LABS: ALANINE AMINOTRANSFERASE 18 U/L (0-55); ALBUMIN 3.3 gm/dL (3.5-5.0); ALKALINE PHOSPHATASE 140 U/L (40-150); ANION GAP 10 mmol/L (7-16); AST,SGOT 20 U/L (5-34); BILIRUBIN,TOTAL 0.5 mg/dL (0.2-1.2); BLOOD UREA NITROGEN 20 mg/dL (7-19); CALCIUM 9.1 mg/dL (8.4-10.2); CARBON DIOXIDE 22 mmol/L (22-29); CHLORIDE 109 mmol/L (98-107); GLUCOSE 98 mg/dL (70-99); POTASSIUM 3.9 mmol/L (3.5-4.5); SODIUM 141 mmol/L (136-145); TOTAL PROTEIN 7.2 gm/dL (6.2-8.1)
[2022-05-10 16:37] LABS: ACETAMINOPHEN < 1.0 ug/mL (10-30); ALCOHOL(ethanol),MEDICAL < 10 mg/dL (0-10); SALICYLATE < 5.0 mg/dL (15.0-30.0)
[2022-05-10 16:55] LABS: TSH w REFLEX 2.502 uIU/mL (0.350-4.940)
[2022-05-10 20:09] VITALS: BP 115/69; PULSE 60
== END 2022-05-10 20:57 | disposition home or self-care (01) ==
LOC: COL.ER 15:05
PROVIDERS: Physician Assistant
DX: F32.A Depression, unspecified (principal); R45.851 Suicidal ideations; Z20.822 Contact with and (suspected) exposure to COVID-19

== ENCOUNTER 2022-05-21 19:21 | Emergency (ER) | payer MEDICAID ==
[~2022-05-21] VITALS: Ht 175.3 cm; Wt 168.2 kg
[2022-05-21 19:22] VITALS: TEMP 98.1
[2022-05-21 19:37] LABS: BASO # 0.1 K/mm3 (0.0-0.2); BASO % 0.6 % (0.0-2.0); EOS # 0.3 K/mm3 (0.0-0.7); GRAN # 4.3 K/mm3 (1.4-6.5); GRAN % 51.2 % (42.2-75.2); HEMATOCRIT 41.1 % (37.0-47.0); HEMOGLOBIN 13.4 g/dl (12.5-16.0); LYMPH # 2.9 K/mm3 (1.2-3.4); LYMPH % 34.5 % (20.0-51.0); MEAN CELL VOLUME 96 fl (80.0-100.0); MEAN CORPUSCULAR HEMOGLOBIN 31 pg (27-31); MEAN CORPUSCULAR HGB CONC 33 g/dl (33.0-37.0); MONO # 0.8 K/mm3 (0.1-0.6); PLATELET COUNT 194 K/mm3 (130-400); RED BLOOD COUNT 4.28 M/mm3 (4.10-5.30); REDCELL DISTRIBUTION WIDTH-CV 13.7 % (11.5-14.5)
[2022-05-21 19:54] LABS: ALANINE AMINOTRANSFERASE 16 U/L (0-55); ALBUMIN 3.5 gm/dL (3.5-5.0); ALKALINE PHOSPHATASE 115 U/L (40-150); ANION GAP 10 mmol/L (7-16); AST,SGOT 20 U/L (5-34); BILIRUBIN,TOTAL 0.4 mg/dL (0.2-1.2); BLOOD UREA NITROGEN 17 mg/dL (7-19); CALCIUM 9.3 mg/dL (8.4-10.2); CARBON DIOXIDE 22 mmol/L (22-29); CHLORIDE 108 mmol/L (98-107); GLUCOSE 103 mg/dL (70-99); POTASSIUM 3.6 mmol/L (3.5-4.5); SODIUM 140 mmol/L (136-145); TOTAL PROTEIN 7.3 gm/dL (6.2-8.1)
[2022-05-21 20:01] LABS: TROPONIN-I < 0.010 ng/mL (0.00-0.033)
[2022-05-21] MEDS ORDERED: PREDNISONE20 MG PO (20:08)
[2022-05-21 20:25] VITALS: BP 104/62; PULSE 61
== END 2022-05-21 20:25 | disposition home or self-care (01) ==
LOC: COL.ER 19:21
PROVIDERS: Emergency Medicine
DX: J44.1 Chronic obstructive pulmonary disease with (acute) exacerbation (principal); R60.0 Localized edema; R79.89 Other specified abnormal findings of blood chemistry; E66.01 Morbid (severe) obesity due to excess calories
CPT/HCPCS: J7512

== ENCOUNTER 2022-05-31 14:24 | Emergency (ER) | payer MEDICAID ==
[~2022-05-31] VITALS: Ht 175.3 cm; Wt 170.5 kg
[2022-05-31 15:31] LABS: COLLECTION METHOD CLEAN CATCH
[2022-05-31 15:37] LABS: URINE APPEARANCE Clear (CLEAR/HAZY); URINE COLOR Yellow (YELLOW)
[2022-05-31 15:38] LABS: URINE BLOOD Negative (NEGATIVE); URINE GLUCOSE Negative (NEGATIVE); URINE KETONE Negative (NEGATIVE); URINE NITRATE Negative (NEGATIVE); URINE PROTEIN(semi-quant) Negative (NEGATIVE); URINE UROBILINOGEN 0.2 E.U/dL (0.2-1.0)
[2022-05-31 15:52] LABS: SQUAMOUS EPITHELIAL 0-2 /hpf (0-10); URINE BACTERIA Rare /hpf (NONE SEEN); URINE RBC 0-2 /hpf (0-2)
[2022-05-31 15:55] LABS: TRICYCLIC ANTIDEPRESS URINE POSITIVE
[2022-05-31 16:25] LABS: BASO % 0.5 % (0.0-2.0); EOS # 0.3 K/mm3 (0.0-0.7); EOS % 3.4 % (0.0-4.0); GRAN # 3.7 K/mm3 (1.4-6.5); GRAN % 48.2 % (42.2-75.2); HEMATOCRIT 40.1 % (37.0-47.0); HEMOGLOBIN 12.8 g/dl (12.5-16.0); LYMPH # 2.9 K/mm3 (1.2-3.4); LYMPH % 37.1 % (20.0-51.0); MEAN CELL VOLUME 97 fl (80.0-100.0); MEAN CORPUSCULAR HEMOGLOBIN 31 pg (27-31); MEAN CORPUSCULAR HGB CONC 32 g/dl (33.0-37.0); MEAN PLATELET VOLUME 9.9 fl (7.4-10.4); MONO # 0.8 K/mm3 (0.1-0.6); MONO % 10.2 % (1.7-9.3); PLATELET COUNT 184 K/mm3 (130-400); RED BLOOD COUNT 4.12 M/mm3 (4.10-5.30); REDCELL DISTRIBUTION WIDTH-CV 13.2 % (11.5-14.5)
[2022-05-31 16:42] LABS: ALANINE AMINOTRANSFERASE 12 U/L (0-55); ALBUMIN 3.3 gm/dL (3.5-5.0); ALKALINE PHOSPHATASE 95 U/L (40-150); ANION GAP 7 mmol/L (7-16); AST,SGOT 18 U/L (5-34); BILIRUBIN,TOTAL 0.5 mg/dL (0.2-1.2); BLOOD UREA NITROGEN 19 mg/dL (7-19); CALCIUM 8.7 mg/dL (8.4-10.2); CARBON DIOXIDE 27 mmol/L (22-29); CHLORIDE 106 mmol/L (98-107); CREATININE, serum 0.98 mg/dL (0.57-1.11); GLUCOSE 113 mg/dL (70-99); POTASSIUM 3.9 mmol/L (3.5-4.5); SODIUM 140 mmol/L (136-145); TOTAL PROTEIN 6.8 gm/dL (6.2-8.1)
[2022-05-31 16:45] LABS: ACETAMINOPHEN < 1.0 ug/mL (10-30); ALCOHOL(ethanol),MEDICAL < 10 mg/dL (0-10); SALICYLATE < 5.0 mg/dL (15.0-30.0)
[2022-05-31] MEDS ORDERED: SINGULAIR 110 MG/TAB PO (20:45)
[2022-05-31] MEDS ORDERED: NORCO 325 MG-51 TAB PO (20:46)
[2022-05-31] MEDS ORDERED: ZOFRAN ODT4 MG PO (20:50)
[2022-05-31 23:45] VITALS: BP 110/64; TEMP 98.4
[2022-06-01 11:00] VITALS: PULSE 65
--- NOTE | 2022-06-01 13:28 | NUR ---
Patient is screened by [facility] and safety planned back to her assisted living apartment at [facility]. clerical office worker met with patient and confirmed that patient does not wish for any family member to be called. [facility] staff present and stated she was the only family for patient.
== END 2022-06-01 11:00 ==
LOC: COL.ER 14:24
PROVIDERS: Physician Assistant
DX: F25.9 Schizoaffective disorder, unspecified (principal); E66.01 Morbid (severe) obesity due to excess calories; Z68.43 Body mass index [BMI] 50.0-59.9, adult; Z20.822 Contact with and (suspected) exposure to COVID-19

== ENCOUNTER 2022-07-09 16:33 | Emergency (ER) | payer MEDICAID ==
[~2022-07-09 16:33] MED LIST changes: +ZOFRAN ODT4 MG PO
[2022-07-09 16:34] VITALS: TEMP 98.5
[2022-07-09] MEDS ORDERED: NORCO 325 MG-51 TAB PO (17:30)
[2022-07-09] MEDS ORDERED: CEFTIN500 MG PO (17:30)
[2022-07-09 19:49] VITALS: BP 147/67; PULSE 88
== END 2022-07-09 19:49 | disposition home or self-care (01) ==
LOC: COL.ER 16:33
DX: S70.01XA Contusion of right hip, initial encounter (principal); H65.92 Unspecified nonsuppurative otitis media, left ear; Z28.310 Unvaccinated for COVID-19; Z88.0 Allergy status to penicillin; Z88.1 Allergy status to other antibiotic agents; W18.30XA Fall on same level, unspecified, initial encounter

== ENCOUNTER → 2023-09-07 | Outpatient (CLI) | payer MEDICAID ==
[~2023-09-07] MED LIST changes: +CEFTIN500 MG PO; +DEMADEX 20MG20 M1 PO; +GLUCOPHAGE1000 MG PO; +LIPITOR 40MG TA40 MG PO; +MIRALAX PA17 GM/Dose PO; +NITROSTAT0.4 MG/TAB SL; +NYSTATIN100000 U/1 TOP; +OZEMPIC1 MG/0.71 SQ; +PRENATE MINI PO; +PRISTIQ 50 MG T50 MG PO; +PROZAC 20MG20 MG PO; +RHOPRESSA2.5 ML OU; +ROCKLATAN 0.022.5 ML OU; +WELLBUTRIN SR200 MG PO; +ZAROXOLYN 2.52.5 MG PO; +ZOFRAN 4MG T4 MG/TAB PO; +ZYRTEC 10MG10 MG PO
== END ==
LOC: COL.RAD 10:16
DX: I27.20 Pulmonary hypertension, unspecified (principal); E04.9 Nontoxic goiter, unspecified

== ENCOUNTER 2023-09-20 11:40 | Emergency (ER) | payer MEDICAID ==
[~2023-09-20] VITALS: Ht 180.3 cm; Wt 177.3 kg
[2023-09-20 14:02] LABS: COLLECTION METHOD CATHETER
[2023-09-20 14:10] LABS: BASO % 0.5 % (0.0-2.0); EOS # 0.3 K/mm3 (0.0-0.7); EOS % 3.7 % (0.0-4.0); GRAN # 4.5 K/mm3 (1.4-6.5); GRAN % 52.8 % (42.2-75.2); HEMATOCRIT 41.4 % (37.0-47.0); HEMOGLOBIN 13.4 g/dl (12.5-16.0); MEAN CELL VOLUME 94 fl (80.0-100.0); MEAN CORPUSCULAR HEMOGLOBIN 31 pg (27-31); MEAN CORPUSCULAR HGB CONC 32 g/dl (33.0-37.0); MEAN PLATELET VOLUME 9.8 fl (7.4-10.4); MONO # 0.7 K/mm3 (0.1-0.6); MONO % 7.8 % (1.7-9.3); PLATELET COUNT 261 K/mm3 (130-400); REDCELL DISTRIBUTION WIDTH-CV 13.8 % (11.5-14.5)
[2023-09-20 14:13] LABS: URINE APPEARANCE Clear (CLEAR/HAZY); URINE COLOR Yellow (YELLOW)
[2023-09-20 14:14] LABS: URINE BLOOD Negative (NEGATIVE); URINE GLUCOSE Negative (NEGATIVE); URINE KETONE Negative (NEGATIVE); URINE NITRATE Negative (NEGATIVE); URINE PROTEIN(semi-quant) Negative (NEGATIVE); URINE UROBILINOGEN 0.2 E.U/dL (0.2-1.0)
[2023-09-20 14:17] LABS: TRICYCLIC ANTIDEPRESS URINE POSITIVE (NEGATIVE)
[2023-09-20 14:28] LABS: ALANINE AMINOTRANSFERASE 23 U/L (0-55); ALBUMIN 3.6 gm/dL (3.5-5.0); ALKALINE PHOSPHATASE 104 U/L (40-150); ANION GAP 10 mmol/L (7-16); AST,SGOT 21 U/L (5-34); BILIRUBIN,TOTAL 0.2 mg/dL (0.2-1.2); BLOOD UREA NITROGEN 13 mg/dL (7-19); CALCIUM 9.6 mg/dL (8.4-10.2); CARBON DIOXIDE 25 mmol/L (22-29); CHLORIDE 106 mmol/L (98-107); GLUCOSE 87 mg/dL (70-99); POTASSIUM 3.8 mmol/L (3.5-4.5); SODIUM 141 mmol/L (136-145); TOTAL PROTEIN 7.8 gm/dL (6.2-8.1)
[2023-09-20 14:30] LABS: ACETAMINOPHEN < 1.0 ug/mL (10-30); ALCOHOL(ethanol),MEDICAL < 10 mg/dL (0-10); SALICYLATE < 5.0 mg/dL (15.0-30.0)
[2023-09-20 14:37] LABS: URINE RBC 0-2 /hpf (0-2)
[2023-09-20 14:38] LABS: URINE BACTERIA None Seen /hpf (NONE SEEN)
[2023-09-20] MEDS ORDERED: WELLBUTRIN 100100 MG PO (15:48)
[2023-09-20] MEDS ORDERED: QUEtiapine 100 MG TAB PO SCH (23:15)
[2023-09-21 07:25] VITALS: TEMP 98.1
[2023-09-21] MEDS ORDERED: buPROPion 100 MG TAB PO ONE (07:30)
[2023-09-21] MEDS ORDERED: LORazepam 1 MG TAB PO PRN (07:30)
[2023-09-21] MEDS ORDERED: Topiramate 100 MG TAB PO SCH (09:00)
[2023-09-21] MEDS ORDERED: Isosorbide Mononitrate CR (24-HR) 30 MG TAB PO SCH (09:00)
[2023-09-21] MEDS ORDERED: metFORMIN 500 MG TAB PO SCH (09:00)
[2023-09-21] MEDS ORDERED: Benztropine 1 MG TAB PO SCH (09:00)
[2023-09-21] MEDS ORDERED: FLUoxetine 20 MG CAP PO SCH ×2 (09:00)
[2023-09-21] MEDS ORDERED: Torsemide 20 MG TAB PO SCH (09:00)
[2023-09-21] MEDS ORDERED: Allopurinol 100 MG TAB PO SCH (09:00)
[2023-09-21] MEDS ORDERED: Albuterol 0.083% Neb Soln 2.5 MG/3 ML UD IH PRN (11:00)
[2023-09-21 14:16] VITALS: BP 116/80; PULSE 77
[2023-09-21] MEDS ORDERED: Prazosin 5 MG CAP PO SCH (21:00)
== END 2023-09-21 14:19 ==
LOC: COL.ER 11:40
PROVIDERS: Physician Assistant
DX: F32.A Depression, unspecified (principal); R45.851 Suicidal ideations

== ENCOUNTER 2023-12-20 16:46 | Emergency (ER) | payer MEDICAID ==
[~2023-12-20] VITALS: Ht 175.3 cm; Wt 182.7 kg
[2023-12-20 17:42] LABS: COLLECTION METHOD CLEAN CATCH
[2023-12-20 17:46] LABS: URINE APPEARANCE CLEAR (CLEAR/HAZY); URINE BLOOD NEGATIVE (NEGATIVE); URINE COLOR YELLOW (YELLOW); URINE GLUCOSE NEGATIVE (NEGATIVE); URINE KETONE NEGATIVE (NEGATIVE); URINE NITRATE NEGATIVE (NEGATIVE); URINE PROTEIN(semi-quant) NEGATIVE (NEGATIVE); URINE UROBILINOGEN 0.2 E.U/dL (0.2-1.0)
[2023-12-20 17:56] LABS: TRICYCLIC ANTIDEPRESS URINE POSITIVE (NEGATIVE)
[2023-12-20 18:53] LABS: BASO % 0.2 % (0.0-2.0); EOS # 0.2 K/mm3 (0.0-0.7); EOS % 2.9 % (0.0-4.0); GRAN # 4.5 K/mm3 (1.4-6.5); GRAN % 55.3 % (42.2-75.2); HEMATOCRIT 44.7 % (37.0-47.0); HEMOGLOBIN 13.8 g/dl (12.5-16.0); LYMPH # 2.7 K/mm3 (1.2-3.4); LYMPH % 32.4 % (20.0-51.0); MEAN CELL VOLUME 96 fl (80.0-100.0); MEAN CORPUSCULAR HEMOGLOBIN 30 pg (27-31); MEAN CORPUSCULAR HGB CONC 31 g/dl (33.0-37.0); MEAN PLATELET VOLUME 9.6 fl (7.4-10.4); MONO # 0.7 K/mm3 (0.1-0.6); PLATELET COUNT 266 K/mm3 (130-400); RED BLOOD COUNT 4.65 M/mm3 (4.10-5.30); REDCELL DISTRIBUTION WIDTH-CV 13.7 % (11.5-14.5)
[2023-12-20 19:23] LABS: ALANINE AMINOTRANSFERASE 12 U/L (0-55); ALBUMIN 3.7 g/dL (3.5-5.0); ALKALINE PHOSPHATASE 95 U/L (40-150); ANION GAP 11 mmol/L (7-16); AST,SGOT 18 U/L (5-34); BILIRUBIN,TOTAL 0.4 mg/dL (0.2-1.2); BLOOD UREA NITROGEN 15 mg/dL (7-19); CHLORIDE 103 mEq/L (98-107); CREATININE, serum 1.19 mg/dL (0.57-1.11); GLUCOSE 86 mg/dL (70-99); SODIUM 142 mEq/L (136-145); TOTAL PROTEIN 7.8 g/dl (6.2-8.1)
[2023-12-20 19:29] LABS: ALCOHOL(ethanol),MEDICAL < 10 mg/dL (0-10); SALICYLATE < 5.0 mg/dL (15.0-30.0)
[2023-12-20] MEDS ORDERED: Acetaminophen 325 MG TAB PO ONE (21:00)
[2023-12-21] MEDS ORDERED: Isosorbide Mononitrate CR (24-HR) 60 MG TAB PO SCH ×2 (06:00→07:00)
[2023-12-21] MEDS ORDERED: IMDUR 60MG60 MG/TAB PO (06:34)
[2023-12-21] MEDS ORDERED: KLONOPIN 0.5MG0.5 MG PO (06:35)
[2023-12-21] MEDS ORDERED: MIRALAX PA17 GM/Dose PO (06:40)
[2023-12-21] MEDS ORDERED: DESYREL 100MG100 MG PO (06:45)
[2023-12-21] MEDS ORDERED: VITAMIN B12 1541 TAB PO (06:47)
[2023-12-21] MEDS ORDERED: MAG-OX 400400 MG/TAB PO (06:49)
[2023-12-21] MEDS ORDERED: PEPCID 20MG TAB20 MG PO (06:50)
[2023-12-21] MEDS ORDERED: PROTOPIC0.1% TP (06:52)
[2023-12-21] MEDS ORDERED: TRIAMCINOLONE A15 G3 TP (06:53)
[2023-12-21] MEDS ORDERED: CLEOCIN HCL300 MG PO (06:55)
[2023-12-21] MEDS ORDERED: EXCEDRIN1 TAB PO (06:58)
[2023-12-21] MEDS ORDERED: PERCOCET 325 MG1 TA2 PO (07:00)
[2023-12-21] MEDS ORDERED: Omeprazole 20 MG **** subs to Pantoprazole 40 MG PO SCH (07:13)
[2023-12-21] MEDS ORDERED: LORazepam 1 MG TAB PO PRN (07:15)
[2023-12-21] MEDS ORDERED: Acetaminophen 325 MG TAB PO PRN (07:15)
[2023-12-21] MEDS ORDERED: metFORMIN 500 MG TAB PO SCH (09:00)
[2023-12-21] MEDS ORDERED: clonazePAM 0.5 MG TAB PO SCH (09:00)
[2023-12-21] MEDS ORDERED: Torsemide 20 MG TAB PO SCH ×2 (09:00)
[2023-12-21] MEDS ORDERED: FLUoxetine 20 MG CAP PO SCH (09:00)
[2023-12-21] MEDS ORDERED: buPROPion XL (24-HR) 150 MG TAB PO SCH (09:00)
[2023-12-21] MEDS ORDERED: Cetirizine 10 MG TAB PO SCH (09:00)
[2023-12-21] MEDS ORDERED: QUEtiapine 100 MG TAB PO SCH (21:00)
[2023-12-23 10:39] VITALS: BP 149/63; PULSE 73; TEMP 98
--- NOTE | 2023-12-25 14:03 | NUR ---
typing office worker received request for information from patient's ER visit from Care[facility]ivers whom is working with patient in her AL. SW faxed information requested.
== END 2023-12-23 10:30 ==
LOC: COL.ER 16:46
PROVIDERS: Nurse Practitioner Primary Care
DX: R44.0 Auditory hallucinations (principal); R45.850 Homicidal ideations; F32.A Depression, unspecified; E66.01 Morbid (severe) obesity due to excess calories; Z68.43 Body mass index [BMI] 50.0-59.9, adult

== ENCOUNTER 2024-03-06 13:31 | Emergency (ER) | payer MEDICAID ==
[~2024-03-06] VITALS: Ht 172.7 cm; Wt 179.5 kg
[~2024-03-06 13:31] MED LIST changes: +CLEOCIN HCL300 MG PO; +DESYREL 100MG100 MG PO; +EXCEDRIN1 TAB PO; +IMDUR 60MG60 MG/TAB PO; +KLONOPIN 0.5MG0.5 MG PO; +MAG-OX 400400 MG/TAB PO; +PERCOCET 325 MG1 TA2 PO; +PROTOPIC0.1% TP; +TRIAMCINOLONE A15 G3 TP; +VITAMIN B12 1541 TAB PO; +WELLBUTRIN XL300 M1 PO
[2024-03-06 14:23] LABS: BASO % 0.6 % (0.0-2.0); EOS # 0.3 K/mm3 (0.0-0.7); EOS % 4.3 % (0.0-4.0); GRAN % 55.5 % (42.2-75.2); HEMATOCRIT 42.7 % (37.0-47.0); HEMOGLOBIN 13.1 g/dl (12.5-16.0); LYMPH # 2.3 K/mm3 (1.2-3.4); LYMPH % 31.8 % (20.0-51.0); MEAN CELL VOLUME 95 fl (80.0-100.0); MEAN CORPUSCULAR HEMOGLOBIN 29 pg (27-31); MEAN CORPUSCULAR HGB CONC 31 g/dl (33.0-37.0); MEAN PLATELET VOLUME 9.5 fl (7.4-10.4); MONO # 0.5 K/mm3 (0.1-0.6); MONO % 7.5 % (1.7-9.3); PLATELET COUNT 280 K/mm3 (130-400); RED BLOOD COUNT 4.48 M/mm3 (4.10-5.30); REDCELL DISTRIBUTION WIDTH-CV 13.9 % (11.5-14.5)
[2024-03-06 14:43] LABS: ALANINE AMINOTRANSFERASE 14 U/L (0-55); ALBUMIN 3.8 g/dL (3.5-5.0); ALKALINE PHOSPHATASE 100 U/L (40-150); ANION GAP 8 mmol/L (7-16); AST,SGOT 17 U/L (5-34); BILIRUBIN,TOTAL 0.4 mg/dL (0.2-1.2); BLOOD UREA NITROGEN 20 mg/dL (7-19); CHLORIDE 102 mEq/L (98-107); CREATININE, serum 1.14 mg/dL (0.57-1.11); GLUCOSE 90 mg/dL (70-99); POTASSIUM 3.6 mEq/L (3.5-4.5); SODIUM 139 mEq/L (136-145); TOTAL PROTEIN 7.8 g/dl (6.2-8.1)
[2024-03-06 14:44] LABS: ALCOHOL(ethanol),MEDICAL < 10 mg/dL (0-10); SALICYLATE < 5.0 mg/dL (15.0-30.0)
[2024-03-06] MEDS ORDERED: Cefepime 1 G in Water For Injection,Sterile 10 ML IV ONE (15:30)
[2024-03-06 16:40] LABS: COLLECTION METHOD CLEAN CATCH
[2024-03-06 16:49] LABS: URINE APPEARANCE CLEAR (CLEAR/HAZY); URINE BLOOD NEGATIVE (NEGATIVE); URINE COLOR YELLOW (YELLOW); URINE GLUCOSE NEGATIVE (NEGATIVE); URINE KETONE NEGATIVE (NEGATIVE); URINE NITRATE NEGATIVE (NEGATIVE); URINE PROTEIN(semi-quant) NEGATIVE (NEGATIVE); URINE UROBILINOGEN 0.2 E.U/dL (0.2-1.0)
[2024-03-06 17:02] LABS: TRICYCLIC ANTIDEPRESS URINE POSITIVE (NEGATIVE)
[2024-03-06] MEDS ORDERED: Acetaminophen 325 MG TAB PO ONE (17:45)
[2024-03-07] MEDS ORDERED: Acetaminophen 500 MG TAB PO ONE (06:00)
[2024-03-07] MEDS ORDERED: diphenhydrAMINE 25 MG CAP PO ONE (06:00)
[2024-03-07] MEDS ORDERED: ROCKLATAN 0.022.5 ML OP (06:33)
[2024-03-07] MEDS ORDERED: SYSTANE 0.4%-0.1 SOL OU (06:40)
[2024-03-07] MEDS ORDERED: DESYREL 50MG50 MG PO (06:42)
[2024-03-07] MEDS ORDERED: ZOFRAN ODT4 MG PO (06:45)
[2024-03-07] MEDS ORDERED: clonazePAM 0.5 MG TAB PO PRN ×2 (07:30)
[2024-03-07] MEDS ORDERED: Omeprazole 20 MG **** subs to Pantoprazole 40 MG PO SCH (08:11)
[2024-03-07] MEDS ORDERED: traZODone 100 MG TAB PO PRN (08:15)
[2024-03-07] MEDS ORDERED: ARIPiprazole 10 MG TAB PO SCH (09:00)
[2024-03-07] MEDS ORDERED: Allopurinol 100 MG TAB PO SCH (09:00)
[2024-03-07] MEDS ORDERED: metFORMIN 500 MG TAB PO SCH (09:00)
[2024-03-07] MEDS ORDERED: Isosorbide Mononitrate CR (24-HR) 60 MG TAB PO SCH (09:00)
[2024-03-07] MEDS ORDERED: buPROPion XL (24-HR) 150 MG TAB PO SCH (09:00)
[2024-03-07] MEDS ORDERED: Polyethylene Glycol 3350 17 GM PDS PO SCH (09:00)
[2024-03-07] MEDS ORDERED: Torsemide 20 MG TAB PO SCH (09:00)
[2024-03-07 10:52] VITALS: BP 103/58; PULSE 72; TEMP 98.5
[2024-03-07] MEDS ORDERED: Atorvastatin 40 MG TAB PO SCH (21:00)
[2024-03-07] MEDS ORDERED: QUEtiapine 100 MG TAB PO SCH (21:00)
== END 2024-03-07 11:09 | disposition short-term general hospital (02) ==
LOC: COL.ER 13:31
PROVIDERS: Personal Emergency Response Attendant
DX: R45.851 Suicidal ideations (principal)

== ENCOUNTER → 2024-04-12 | Outpatient (CLI) | payer MEDICAID ==
[~2024-04-12] MED LIST changes: +Albuterol 0.083% Neb Soln 2.5 MG/3 ML UD IH ONE; +DESYREL 50MG50 MG PO; +Iohexol 300 - 100 ML VIAL IV ONE; +NS 100 ML IV SCH; +ROCKLATAN 0.022.5 ML OP; +SYSTANE 0.4%-0.1 SOL OU
[2024-04-12 10:47] LABS: BASO % 0.5 % (0.0-2.0); EOS # 0.8 K/mm3 (0.0-0.7); EOS % 9.5 % (0.0-4.0); GRAN # 4.7 K/mm3 (1.4-6.5); GRAN % 55.6 % (42.2-75.2); HEMATOCRIT 43.1 % (37.0-47.0); LYMPH # 2.3 K/mm3 (1.2-3.4); LYMPH % 26.9 % (20.0-51.0); MEAN CELL VOLUME 99 fl (80.0-100.0); MEAN CORPUSCULAR HEMOGLOBIN 30 pg (27-31); MEAN CORPUSCULAR HGB CONC 30 g/dl (33.0-37.0); MEAN PLATELET VOLUME 10.5 fl (7.4-10.4); MONO # 0.6 K/mm3 (0.1-0.6); MONO % 7.1 % (1.7-9.3); PLATELET COUNT 278 K/mm3 (130-400); RED BLOOD COUNT 4.37 M/mm3 (4.10-5.30); REDCELL DISTRIBUTION WIDTH-CV 13.5 % (11.5-14.5)
[2024-04-12 11:00] LABS: CALCIUM 9.6 mg/dL (8.4-10.2); CREATININE, serum 1.13 mg/dL (0.57-1.11)
[2024-04-12 11:08] LABS: ARTERIAL BLD GAS O2 SATURATION 95.8 % (92-100); ARTERIAL BLD GAS TCO2 CT 28.4; ARTERIAL BLOOD GAS BASE EXCESS 1.9 (-2-2); ARTERIAL BLOOD GAS PCO2 44.3 mmHg (35-45); ARTERIAL BLOOD GAS PO2 79.5 mmHg (80-100)
[2024-04-15 14:15] LABS: ANGIOTENSIN CONVERTING ENZYME 37 U/L (14-82)
== END ==
LOC: COL.RAD 09:00
PROVIDERS: Internal Medicine Pulmonary Disease
DX: I07.1 Rheumatic tricuspid insufficiency (principal); R91.8 Other nonspecific abnormal finding of lung field
CPT/HCPCS: Q9967